=== PATIENT | female | born 1990 | race Caucasian/White ===

== ENCOUNTER 2017-04-14 10:12 | Emergency (ER) | payer OTHER ==
[~2017-04-14] VITALS: Wt 79.4 kg
[2017-04-14 10:36] LABS: BASO # 0.1 10*3/uL (0.0-0.1); BASO % 0.6 % (0.0-1.0); EOS # 0.1 10*3/uL (0.0-0.4); EOS % 0.8 % (1.0-4.0); HEMATOCRIT 45.1 % (37.0-47.0); HEMOGLOBIN 15.4 g/dl (12.0-16.0); LYMPH # 2.4 10*3/uL (1.3-4.4); LYMPH % 23.4 % (27.0-41.0); MEAN CELL VOLUME 82.8 fl (81.0-99.0); MEAN CORPUSCULAR HGB 28.3 pg (27.0-31.0); MEAN CORPUSCULAR HGB CONC 34.1 g/dl (33.0-37.0); MEAN PLATELET VOLUME 9.4 fl (9.6-12.3); MONO # 0.3 10*3/uL (0.1-1.0); NEUT # 7.3 10*3/uL (2.3-7.9); NEUT % 71.8 % (47.0-73.0); PLATELET COUNT AUTOMATED 344 10*3/uL (130-400); RED BLOOD COUNT 5.45 10*6/uL (4.10-5.10); RED CELL DISTRI WIDTH 13.9 % (0-14.5); WHITE BLOOD COUNT 10.1 10*3/uL (4.8-10.8)
[2017-04-14 10:46] LABS: ACT PARTIAL THROMBO TIME 26.1 SECONDS (20.8-31.5)
[2017-04-14 10:52] LABS: ALBUMIN 3.5 gm/dl (3.1-4.5); ALKALINE PHOSPHATASE 105 U/L (45-117); BUN 9 mg/dl (7-24); CHLORIDE 105 mmol/L (98-107); CREATININE 0.69 mg/dL (0.55-1.02); SGOT/AST 12 IU/L (3-35); SGPT/ALT 21 U/L (12-78); SODIUM 141 mmol/L (136-145); TOTAL PROTEIN 7.7 gm/dL (6.4-8.2)
[2017-04-14 11:05] LABS: TROPONIN I < 0.015 ng/ml (<0.045)
== END 2017-04-14 13:05 | disposition home or self-care (01) ==
LOC: ED 10:12
PROVIDERS: Emergency Medicine
DX: R07.9 Chest pain, unspecified (principal); R06.02 Shortness of breath; F17.200 Nicotine dependence, unspecified, uncomplicated

== ENCOUNTER 2018-02-15 04:53 | Emergency (ER) | payer SELFPAY ==
[~2018-02-15] VITALS: Ht 165.1 cm; Wt 104.3 kg
--- NOTE | ~2018-02-15 | EKG ---
[place], [place] ELECTROCARDIOGRAM REPORT NAME: JETT KAY UNIT #: [id number] ROOM: DOCTOR: EPIPHANY DRAFT REPORT BIRTHDATE: [birth year] [facility] Test Date: 2018-02-15 Test Time: 05:28:24 Pat Name: JETT KAY Department: Room: Gender: F Expert Witness: Courtney Yip : 1990 Requested By: SHERITA MUNROE Order Number: [id number] Reading MD: Dariel Mathias MD Measurements Intervals [place] Rate: 85 P: 2 DC: 175 QRS: 24 QRSD: 81 T: 24 QT: 364 QTc: 433 Interpretive Statements Sinus rhythm Electronically Signed On 02-15-2018 7:12:45 PDT by Dariel Mathias MD CM:EKGRPT:ELECTROCARDIOGRAM REPORT [id number] SHERITA MUNROE MD EPIPHANY DRAFT REPORT SHERITA MUNROE MD
[2018-02-15] MEDS ORDERED: CELEXA20 MG PO (05:34)
[2018-02-15] MEDS ORDERED: LEVOTHYROXINE50 MCG PO (05:35)
[2018-02-15] MEDS ORDERED: METFORMIN ER500 MG PO (05:36)
[2018-02-15 05:48] LABS: BASO # 0.1 10*3/uL (0.0-0.1); BASO % 0.7 % (0.0-1.0); EOS # 0.1 10*3/uL (0.0-0.4); EOS % 1.1 % (1.0-4.0); HEMOGLOBIN 15.1 g/dl (12.0-16.0); LYMPH # 3.8 10*3/uL (1.3-4.4); LYMPH % 34.4 % (27.0-41.0); MEAN CELL VOLUME 81.8 fl (81.0-99.0); MEAN CORPUSCULAR HGB 28.1 pg (27.0-31.0); MEAN CORPUSCULAR HGB CONC 34.3 g/dl (33.0-37.0); MEAN PLATELET VOLUME 9.8 fl (9.6-12.3); MONO # 0.5 10*3/uL (0.1-1.0); MONO % 4.3 % (3.0-9.0); NEUT # 6.5 10*3/uL (2.3-7.9); NEUT % 59.2 % (47.0-73.0); PLATELET COUNT AUTOMATED 401 10*3/uL (130-400); RED BLOOD COUNT 5.38 10*6/uL (4.10-5.10); RED CELL DISTRI WIDTH 13.3 % (0-14.5); WHITE BLOOD COUNT 10.9 10*3/uL (4.8-10.8)
[2018-02-15 06:04] LABS: ACT PARTIAL THROMBO TIME 24.5 SECONDS (20.8-31.5)
[2018-02-15 06:06] LABS: ALBUMIN 3.4 gm/dl (3.1-4.5); ALKALINE PHOSPHATASE 82 U/L (45-117); BUN 10 mg/dl (7-24); CHLORIDE 107 mmol/L (98-107); CREATININE 0.78 mg/dL (0.55-1.02); POTASSIUM 3.2 mmol/L (3.5-5.1); SGOT/AST 10 IU/L (3-35); SGPT/ALT 21 U/L (12-78); SODIUM 140 mmol/L (136-145); TROPONIN I < 0.015 ng/ml (<0.045)
[2018-02-15] MEDS ORDERED: ATIVAN1 MG PO (06:23)
== END 2018-02-15 06:48 | disposition home or self-care (01) ==
LOC: ED 04:53
PROVIDERS: Emergency Medicine Emergency Medical Services
DX: R00.2 Palpitations (principal); F41.9 Anxiety disorder, unspecified; Z79.899 Other long term (current) drug therapy

== ENCOUNTER → 2018-12-25 | Outpatient (CLI) | payer OTHER ==
[~2018-12-25] MED LIST: ATIVAN1 MG PO; CELEXA20 MG PO; LEVOTHYROXINE50 MCG PO; METFORMIN ER500 MG PO
== END | disposition home or self-care (01) ==
LOC: US 16:56
DX: N91.2 Amenorrhea, unspecified (principal)

== ENCOUNTER → 2019-05-21 | Day surgery (SDC) | payer OTHER ==
[~2019-05-21] VITALS: Ht 170.1 cm; Wt 105.2 kg
[~2019-05-21] MED LIST changes: +IBU800 MG PO
[2019-05-21 07:03] VITALS: BP 121/78
[2019-05-21 07:58] VITALS: BP 130/93
[2019-05-21 08:13] VITALS: BP 144/83
[2019-05-21 08:28] VITALS: BP 123/89
[2019-05-21 08:43] VITALS: BP 119/77
[2019-05-21 08:53] VITALS: BP 128/65
== END | disposition home or self-care (01) ==
LOC: SDC 05-08 14:00
DX: N85.8 Other specified noninflammatory disorders of uterus (principal); J45.909 Unspecified asthma, uncomplicated; F41.9 Anxiety disorder, unspecified; Z87.891 Personal history of nicotine dependence; Z79.84 Long term (current) use of oral hypoglycemic drugs; Z79.899 Other long term (current) drug therapy; Z88.8 Allergy status to other drugs, medicaments and biological substances

== ENCOUNTER → 2019-09-02 | Outpatient (CLI) | payer OTHER | END | disposition home or self-care (01) | LOC: US 11:22 | DX: N91.2 Amenorrhea, unspecified (principal); Z34.81 Encounter for supervision of other normal pregnancy, first trimester; Z3A.01 Less than 8 weeks gestation of pregnancy ==

== ENCOUNTER → 2019-11-21 | Outpatient (CLI) | payer OTHER, MEDICAID | LOC: US 10:30 | DX: Z34.02 Encounter for supervision of normal first pregnancy, second trimester (principal); Z3A.18 18 weeks gestation of pregnancy ==

== ENCOUNTER → 2019-12-06 | Outpatient (CLI) | payer MEDICAID | END | disposition home or self-care (01) | LOC: US 11:00 | DX: Z34.02 Encounter for supervision of normal first pregnancy, second trimester (principal); Z3A.21 21 weeks gestation of pregnancy ==

== ENCOUNTER → 2021-05-24 | Outpatient (CLI) | payer OTHER ==
[~2021-05-24] MED LIST changes: +CEPHALEXIN500 M1 PO
== END | disposition home or self-care (01) ==
LOC: COVID19 14:57
PROVIDERS: ATTEND Internal Medicine
DX: U07.1 COVID-19 (principal)

== ENCOUNTER → 2021-11-22 | Outpatient (CLI) | payer BC | LOC: LAB 17:06 | PROVIDERS: ATTEND Nurse Practitioner Family | DX: E03.9 Hypothyroidism, unspecified (principal); Z71.2 Person consulting for explanation of examination or test findings ==

== ENCOUNTER → 2022-12-14 | Outpatient (CLI) | payer BC | END | disposition home or self-care (01) | LOC: RAD 15:23 | PROVIDERS: ATTEND Nurse Practitioner | DX: M50.321 Other cervical disc degeneration at C4-C5 level (principal); M48.02 Spinal stenosis, cervical region; M25.78 Osteophyte, vertebrae ==

== ENCOUNTER 2025-06-08 20:36 | Emergency (ER) | payer MEDICAID ==
[~2025-06-08] VITALS: Ht 172.7 cm; Wt 63.5 kg
[2025-06-08] MEDS ORDERED: SERTRALINE HYD100 MG PO (20:48)
[2025-06-08] MEDS ORDERED: LISINOPRIL5 MG PO (20:48)
[2025-06-08] MEDS ORDERED: ALBUTEROL 8 GM INHALER INH ONE (22:10)
[2025-06-08 22:28] LABS: BASO # 0.1 10*3/uL (0.0-0.1); BASO % 1.0 % (0.0-1.0); EOS # 0.4 10*3/uL (0.0-0.4); EOS % 3.7 % (1.0-4.0); MEAN CELL VOLUME 82.8 fl (81.0-99.0); MEAN CORPUSCULAR HGB 27.5 pg (27.0-31.0); MEAN PLATELET VOLUME 9.2 fl (9.6-12.3); MONO # 0.6 10*3/uL (0.1-1.0); MONO % 6.1 % (3.0-9.0); NEUT # 5.9 10*3/uL (2.3-7.9); NEUT % 61.3 % (47.0-73.0); NUCLEATED RED BLOOD CELL 0.0 % (0.0-0.0); NUCLEATED RED BLOOD CELL 0.0 10*3/uL (0.0-0.0); PLATELET COUNT AUTOMATED 341 10*3/uL (130-400); RED CELL DISTRI WIDTH 13.7 % (0-14.5)
[2025-06-08 22:52] LABS: BUN 17 mg/dl (9-23); SGPT/ALT 15 U/L (5-49)
== END 2025-06-08 23:45 | disposition home or self-care (01) ==
LOC: ED 20:36
PROVIDERS: Nurse Practitioner
DX: F41.9 Anxiety disorder, unspecified (principal); J45.909 Unspecified asthma, uncomplicated; I10 Essential (primary) hypertension; F17.210 Nicotine dependence, cigarettes, uncomplicated; Z98.890 Other specified postprocedural states; Z88.1 Allergy status to other antibiotic agents; Z20.822 Contact with and (suspected) exposure to COVID-19